=== PATIENT | male | born 1950 | race Caucasian/White ===

== ENCOUNTER 2021-07-01 14:12 | Emergency (ER) | payer MEDICARE ==
[~2021-07-01 14:12] MED LIST: IBUPROFEN400 MG PO
[2021-07-01 15:23] LABS: HEMOGLOBIN 11.8 gm/dl (14.0-17.5); RED BLOOD COUNT 3.55 M/UL (4.20-5.50); WHITE BLOOD COUNT 8.4 K/UL (4.5-11.0)
[2021-07-01 15:57] LABS: BUN/CREATININE RATIO 9 (0-10)
== END 2021-07-01 18:00 | disposition home or self-care (01) ==
LOC: ER1 14:12
PROVIDERS: Family Medicine
DX: I95.9 Hypotension, unspecified (principal); N18.9 Chronic kidney disease, unspecified; Z86.73 Personal history of transient ischemic attack (TIA), and cerebral infarction without residual deficits; Z20.822 Contact with and (suspected) exposure to COVID-19; Z87.19 Personal history of other diseases of the digestive system
CPT/HCPCS: 36600; 51702; 70450; 71045; 80053; 80307; 81001; 82550; 82553; 82803; 82962; 83605; 83735; 83880; 84100; 84484; 85025; 85610; 86140; 86850; 86900; 86901; 87040; 87086; 93005; 99285; G0480; J7030; U0002

== ENCOUNTER 2021-08-17 10:18 | Inpatient (IN) | payer OTHER ==
[~2021-08-17] VITALS: Ht 185.4 cm; Wt 139.0 kg
[2021-08-17 10:54] LABS: RED BLOOD COUNT 4.06 M/UL (4.20-5.50); WHITE BLOOD COUNT 8.9 K/UL (4.5-11.0)
[2021-08-17] MEDS ORDERED: TIZANIDINE HCL4 MG PO (14:48)
[2021-08-17] MEDS ORDERED: FLONASE ALLER15.8 ML (14:48)
[2021-08-17] MEDS ORDERED: GABAPENTIN300 MG PO (14:48)
[2021-08-17] MEDS ORDERED: LISINOPRIL20 MG PO (14:49)
[2021-08-17] MEDS ORDERED: METOPROLOL SUCC50 MG PO (14:49)
[2021-08-17] MEDS ORDERED: ATORVASTATIN CA40 MG PO (14:49)
[2021-08-17] MEDS ORDERED: PROTONIX 40 MG40 M1 PO (14:50)
[2021-08-18 04:30] LABS: HEMOGLOBIN 12.5 gm/dl (14.0-17.5); RED BLOOD COUNT 3.62 M/UL (4.20-5.50); WHITE BLOOD COUNT 7.6 K/UL (4.5-11.0)
[2021-08-18] MEDS ORDERED: DECADRON6 MG PO (16:35)
[2021-08-19 05:08] LABS: BUN/CREATININE RATIO 25 (0-10)
--- NOTE | 2021-08-19 05:27 | NUR ---
CRITICAL [facility] 16.[address] ARMIJO. NO NEW ORDERS GIVEN.
--- NOTE | 2021-08-19 11:13 | NUR ---
09 Late Entry Pat. yelling loudly on telephone saying "come and get me out of here" "Bring me my clothes" "You are going to fucking pay for this!!" Patient's 02 sat in the low 70's and patient has his 02 off. I entered the room with LUIS Vaughn and instructed the patient he needed to put his oxygen on. However, the patient refused and stated that he was not wearing the oxygen. 09 Late Entry Patient placed his 02 back on 02 sat 85-89%, patient resting in bed, at this time. 1110 Late Entry Patient's 02 sat down to low 70's respirations are labored, Dr. Del Angel aware 02 increased to 15 liters as per verbal orders from Dr. Del Angel, then orders for [employer] was given. Respiratory aware. Orders to transfer to [facility], Scott [employer] Reporter aware.
[2021-08-20 06:10] LABS: RED BLOOD COUNT 3.75 M/UL (4.20-5.50)
[2021-08-20 06:14] LABS: WHITE BLOOD COUNT 11.3 K/UL (4.5-11.0)
--- NOTE | 2021-08-20 07:45 | NUR ---
PATIENT SCREAMING THAT HE CANNOT FEEL HIS LEFT ARM AND HIS "HAND IS NOT WORKING AND HE CANNOT FIND IT". THE PATIENT IS AGGRESSIVE AND YELLING AT STAFF. NEURO ASSESSMENT DONE AND THE PATIENT IS UNABLE TO LIFT LEFT ARM, SQUEEZE MY FINGERS WITH LEFT HAND AND UNABLE TO WIGGLE TOES ON LEFT FOOT. PATIENT CAN STICK OT TONGUE AND SMILE APPROPRIATLEY. DR. COLVIN CALLED AND NO ANSWER SO DR. NOONAN IS ON THE FLOOR SO HE COMES TO ASSIST ME. DR. NOONAN ORDERED STAT HEAD CT.
--- NOTE | 2021-08-20 08:45 | NUR ---
PATIENT IS VERY UNCOOROPERATIVE AND RESTLESS. THE PATIENT IS NOT ABLE TO MAINTAIN OXYGEN ABOVE 89% ON AIRVO. DR. SALVADOR AT BEDSIDE AND AWARE OF PATIENT CONDITION. PATIENT RECIEVED HEAD CT. NO NEURO COVERAGE UNTIL 08/24 IS AVAILABLE. ABG OBTAINED AND DR. SALVADOR IS AWARE OF RESULTS. PATIENT PUT ON NONREBREATHER.
[2021-08-21 05:10] LABS: HEMOGLOBIN 13.5 gm/dl (14.0-17.5); RED BLOOD COUNT 3.8 M/UL (4.20-5.50); WHITE BLOOD COUNT 14.1 K/UL (4.5-11.0)
--- NOTE | 2021-08-21 07:12 | NUR ---
0630: PATIENT NOT VERY RESPONSIVE TO STIMULI. RESPIRATORY CALLED TO DO STAT ABG. PATIENT CURRENTLY ON BIPAP.
[2021-08-21] MEDS ORDERED: SEDATION (16:43)
[2021-08-21] MEDS ORDERED: [UNRECOGNIZED DRUG - REMARK] (16:43)
[2021-08-21] MEDS ORDERED: eliquis (16:43)
[2021-08-21] MEDS ORDERED: [UNRECOGNIZED DRUG - OTHER] (16:43)
[2021-08-21] MEDS ORDERED: [UNRECOGNIZED DRUG - REMARK] (16:43)
[2021-08-21 20:59] LABS: HEMOGLOBIN 11.9 gm/dl (14.0-17.5); RED BLOOD COUNT 3.55 M/UL (4.20-5.50)
[2021-08-21 21:09] LABS: WHITE BLOOD COUNT 22.6 K/UL (4.5-11.0)
[2021-08-22 04:38] LABS: RED BLOOD COUNT 3.53 M/UL (4.20-5.50); WHITE BLOOD COUNT 22.3 K/UL (4.5-11.0)
[2021-08-23 04:45] LABS: HEMOGLOBIN 10.3 gm/dl (14.0-17.5); RED BLOOD COUNT 3.04 M/UL (4.20-5.50); WHITE BLOOD COUNT 16.5 K/UL (4.5-11.0)
[2021-08-24 05:22] LABS: HEMOGLOBIN 9.4 gm/dl (14.0-17.5); RED BLOOD COUNT 2.81 M/UL (4.20-5.50); WHITE BLOOD COUNT 19.9 K/UL (4.5-11.0)
[2021-08-25 01:50] LABS: HEMOGLOBIN 7.5 gm/dl (14.0-17.5); WHITE BLOOD COUNT 18.1 K/UL (4.5-11.0)
[2021-08-25 01:51] LABS: RED BLOOD COUNT 2.36 M/UL (4.20-5.50)
[2021-08-26 05:34] LABS: HEMOGLOBIN 7.2 gm/dl (14.0-17.5); RED BLOOD COUNT 2.24 M/UL (4.20-5.50); WHITE BLOOD COUNT 19.5 K/UL (4.5-11.0)
[2021-08-26 10:15] LABS: HEPARIN INDUCED PLATELET AB 0.481 OD (0.000-0.400); SRA, LOW DOSE HEPARIN 2 % (0-20)
[2021-08-26 12:16] LABS: HBSAG SCREEN Negative (Negative); HEP A AB, IGM Negative (Negative); HEP B CORE AB, IGM Negative (Negative); HEP C VIRUS AB <0.1 (0.0-0.9)
[2021-08-27 05:27] LABS: WHITE BLOOD COUNT 20.9 K/UL (4.5-11.0)
[2021-08-27 05:44] LABS: RED BLOOD COUNT 2.5 M/UL (4.20-5.50)
[2021-08-28 07:47] LABS: HEMOGLOBIN 8.2 gm/dl (14.0-17.5); RED BLOOD COUNT 2.49 M/UL (4.20-5.50); WHITE BLOOD COUNT 18.3 K/UL (4.5-11.0)
== END 2021-08-29 13:26 | disposition expired | DRG 207 ==
LOC: ER1 10:18 → M/S 13:36 → CCU 13:36 → CDU 13:36 → PROG CARE 13:36 → M/S 16:13 → PROG CARE 08-19 14:23 → CCU 08-19 16:21
PROVIDERS: Internal Medicine; Internal Medicine Critical Care Medicine; Internal Medicine Nephrology; Physician Assistant; Physician Assistant Medical; Student in an Organized Health Care Education/Training Program; ADMIT Internal Medicine
PROC: 8E0ZXY6 Isolation (ICD-10-PCS; principal; 2021-08-17)
PROC: XW033E5 Introduction of Remdesivir Anti-infective into Peripheral Vein, Percutaneous Approach, New Technology Group 5 (ICD-10-PCS; 2021-08-17)
PROC: 3E0333Z Introduction of Anti-inflammatory into Peripheral Vein, Percutaneous Approach (ICD-10-PCS; 2021-08-17)
PROC: XW033H5 Introduction of Tocilizumab into Peripheral Vein, Percutaneous Approach, New Technology Group 5 (ICD-10-PCS; 2021-08-19)
PROC: 5A0945A Assistance with Respiratory Ventilation, 24-96 Consecutive Hours, High Flow/Velocity Cannula (ICD-10-PCS; 2021-08-19)
PROC: 5A1955Z Respiratory Ventilation, Greater than 96 Consecutive Hours (ICD-10-PCS; 2021-08-21)
PROC: 3E033XZ Introduction of Vasopressor into Peripheral Vein, Percutaneous Approach (ICD-10-PCS; 2021-08-21)
PROC: 0BH17EZ Insertion of Endotracheal Airway into Trachea, Via Natural or Artificial Opening (ICD-10-PCS; 2021-08-21)
PROC: 30233M1 Transfusion of Nonautologous Plasma Cryoprecipitate into Peripheral Vein, Percutaneous Approach (ICD-10-PCS; 2021-08-21)
PROC: 30233N1 Transfusion of Nonautologous Red Blood Cells into Peripheral Vein, Percutaneous Approach (ICD-10-PCS; 2021-08-21)
PROC: B24BZZZ Ultrasonography of Heart with Aorta (ICD-10-PCS; 2021-08-21)
PROC: 5A09357 Assistance with Respiratory Ventilation, Less than 24 Consecutive Hours, Continuous Positive Airway Pressure (ICD-10-PCS; 2021-08-21)
PROC: 05HN33Z Insertion of Infusion Device into Left Internal Jugular Vein, Percutaneous Approach (ICD-10-PCS; 2021-08-21)
PROC: B544ZZA Ultrasonography of Left Jugular Veins, Guidance (ICD-10-PCS; 2021-08-21)
DX: U07.1 COVID-19 (principal); A41.89 Other specified sepsis; R65.21 Severe sepsis with septic shock; J80 Acute respiratory distress syndrome; J12.82 Pneumonia due to coronavirus disease 2019; I63.9 Cerebral infarction, unspecified; D65 Disseminated intravascular coagulation [defibrination syndrome]; N17.0 Acute kidney failure with tubular necrosis; G93.6 Cerebral edema; E87.1 Hypo-osmolality and hyponatremia; M62.82 Rhabdomyolysis; I82.431 Acute embolism and thrombosis of right popliteal vein; E44.1 Mild protein-calorie malnutrition; Z68.1 Body mass index [BMI] 19.9 or less, adult; E87.4 Mixed disorder of acid-base balance; K56.7 Ileus, unspecified; Z23 Encounter for immunization; E87.5 Hyperkalemia; D75.82 Heparin induced thrombocytopenia (HIT); D64.9 Anemia, unspecified; Z66 Do not resuscitate; I12.9 Hypertensive chronic kidney disease with stage 1 through stage 4 chronic kidney disease, or unspecified chronic kidney disease; Z51.5 Encounter for palliative care; N18.30 Chronic kidney disease, stage 3 unspecified; E78.5 Hyperlipidemia, unspecified; Z79.82 Long term (current) use of aspirin; Z79.899 Other long term (current) drug therapy; F41.9 Anxiety disorder, unspecified
CPT/HCPCS: ECHO; 0240U; 31500; 36415; 36600; 70450; 71045; 74018; 80048; 80053; 80074; 80076; 80202; 81001; 82550; 82553; 82570; 82607; 82728; 82746; 82803; 82962; 83036; 83540; 83550; 83605; 83735; 83874; 83880; 84100; 84132; 84133; 84156; 84300; 84484; 85025; 85027; 85379; 85384; 85610; 85730; 86140; 86850; 86900; 86901; 86920; 87040; 87081; 87086; 89050; 90935; 90937; 93005; 93306; 93970; 94002; 94003; 94640; 94660; 94664; 94760; 96374; 96375; 99285; A6212; C1752; C9113; J0248; J0610; J0692; J0696; J0883; J1100; J1644; J1650; J1940; J2270; J2704; J3370; J7030; J7042; J7050; J7070; J7120; P9012; P9016; P9047; Q0249